=== PATIENT | female | born 1955 | race Two or more races ===

== ENCOUNTER 2019-05-31 10:43 | Outpatient (CLI) | payer OTHER | END 2019-05-31 10:49 | disposition home or self-care (01) | LOC: SONOGRAMA 10:43 | DX: E04.2 Nontoxic multinodular goiter (principal) ==

== ENCOUNTER 2021-02-09 11:52 | Outpatient (CLI) | payer OTHER | END 2021-02-09 11:56 | disposition home or self-care (01) | LOC: SONOGRAMA 11:52 | PROVIDERS: ATTEND Pathology Anatomic Pathology & Clinical Pathology | DX: D34 Benign neoplasm of thyroid gland (principal); E04.1 Nontoxic single thyroid nodule ==

== ENCOUNTER 2023-03-07 08:19 | Outpatient (CLI) | payer OTHER | END 2023-03-07 08:22 | disposition home or self-care (01) | LOC: SONOGRAMA 08:19 | PROVIDERS: ATTEND Pathology Anatomic Pathology | DX: D34 Benign neoplasm of thyroid gland (principal); E04.9 Nontoxic goiter, unspecified ==